=== PATIENT | male | born 1995 | race Caucasian/White ===

== ENCOUNTER 2020-01-21 10:35 | Emergency (ER) | payer BC, OTHER ==
[2020-01-21] MEDS ORDERED: Ondansetron ODT 4 MG TAB ONE (11:01)
[2020-01-21] MEDS ORDERED: Mag-Al Plus 1200 MG/1200 MG/120 MG/30 ML UDCUP ONE (11:01)
[2020-01-21] MEDS ORDERED: Lidocaine Viscous Sol 2% 15 ml UD Cup ONE (11:01)
== END 2020-01-21 11:19 | disposition home or self-care (01) ==
LOC: MADERS 10:35
DX: K29.70 Gastritis, unspecified, without bleeding (principal)
CPT/HCPCS: 99283; Q0162

== ENCOUNTER 2020-12-10 05:57 | Emergency (ER) | payer BC, SELFPAY ==
[2020-12-10 06:44] LABS: #Basophils 0.1 thou/uL (0.0-0.2); #Eosinphils 0.1 thou/uL (0.0-0.7); #Lymphocytes 1.2 thou/uL (1.20-3.40); #Monocytes 0.7 thou/uL (0.11-0.59); #Neutrophils 11.4 thou/uL (1.40-6.50); %Basophils 0.6 % (0.0-1.0); %Eosinophils 0.7 % (0.0-10.0); %Lymphocytes 8.7 % (21.0-51.0); Hemoglobin 16.9 g/dL (14.0-18.0); Mean Corpuscular HGB CONC 33.7 g/dL (32.0-36.0); Mean Corpuscular Hemoglobin 30.5 pg (27.0-31.0); Mean Corpuscular Volume 90.7 fL (78.0-98.0); Mean Platelet Volume 11.8 fL (7.4-10.4); Platelet Count 138 thou/uL (130-400); RBC Distribution Width 11.2 % (11.5-14.5); Red Blood Cell (RBC) Count 5.52 mill/uL (4.70-6.10); White Blood Cell (WBC) Count 13.4 thou/uL (4.8-10.8)
[2020-12-10] MEDS ORDERED: Pantoprazole 40 MG VIAL ONE (06:45)
[2020-12-10] MEDS ORDERED: Ondansetron PF 4 MG/2 ML Vial ONE (06:45)
[2020-12-10] MEDS ORDERED: Sodium Chloride 0.9% 1,000 ML ONE ×2 (06:45→07:18)
[2020-12-10 06:51] LABS: CK (CPK) 629 U/L (30-200); CRP (Inflammatory) Less than 0.50 mg/dL (= or < 0.5)
[2020-12-10 06:55] LABS: ALT (SGPT) 64 U/L (8-55); AST (SGOT) 43 U/L (5-34); Albumin 4.9 g/dL (3.5-5.0); Alkaline Phosphatase 75 U/L (40-110); Anion Gap 21 mmol/L (10-20); BUN (Urea Nitrogen) 17 mg/dL (8.9-20.6); Bilirubin, Total 1.1 mg/dL (0.2-1.2); Calc. Creatinine Clearance 0 mL/min (70-130); Calcium 9.5 mg/dL (7.8-10.44); Carbon Dioxide 19 mmol/L (22-29); Chloride 103 mmol/L (98-107); Globulin 2.9 g/dL (2.4-3.5); Glucose 114 mg/dL (70-105); Lipase 57 U/L (8-78); Potassium 4.6 mmol/L (3.5-5.1); Protein, Total 7.8 g/dL (6.0-8.3); Sodium 138 mmol/L (136-145)
[2020-12-10 07:01] LABS: Bilirubin Negative (Negative); Blood, Urine Trace (Negative); Clarity Clear (Clear); Glucose, Urine (Dipstick) Negative (Negative); Ketone, Urine 80 mg/dL (Negative); Leukocyte Negative (Negative); Nitrite Negative (Negative); Protein, Urine (Dipstick) Negative (Neg-Trace); Urobilinogen 0.2 mg/dL (Less than 2); pH, Urine 5.5 (5.0-9.0)
[2020-12-10 07:02] LABS: Bacteria/HPF Rare-Few HPF (None Seen); RBC/HPF 0-3 HPF (0-3); Specific Gravity, Urine 1.024 (1.002-1.036); Squamous Epithelial 0-3 HPF (0-3); WBC/HPF 0-3 HPF (0-3)
[2020-12-10] MEDS ORDERED: Morphine 4 MG/ML VIAL ONE (07:35)
[2020-12-10] MEDS ORDERED: Piperacillin/Tazobactam 4.5 GM VIAL ONE (08:43)
[2020-12-10] MEDS ORDERED: Dextrose 5 %-0.45 % NaCl 1,000 ML ONE (08:43)
[2020-12-10] MEDS ORDERED: Sodium Chloride 0.9% 100 ML ONE (08:44)
[2020-12-10 09:38] LABS: SARS-CoV-2 NAA Rapid Test Not Detected (NotDetected)
== END 2020-12-10 09:10 | disposition short-term general hospital (02) ==
LOC: MADERS 05:57
DX: K35.80 Unspecified acute appendicitis (principal); Z20.822 Contact with and (suspected) exposure to COVID-19
CPT/HCPCS: 0240U; 71045; 74177; 80053; 81003; 81015; 82150; 82550; 83605; 83690; 84484; 85025; 86140; 93005; 94760; 96361; 96365; 96375; C9113; J2270; J2405; J2543; J3490; J7042; J7050